=== PATIENT | male | born 1975 | race Two or more races ===

== ENCOUNTER 2018-06-13 14:23 | Emergency (ER) | payer SELFPAY ==
[~2018-06-13] VITALS: Ht 177.8 cm; Wt 75.3 kg
[2018-06-13 14:51] VITALS: Ht 177.8 cm; Wt 75.3 kg
[2018-06-13 16:20] VITALS: BP 137/83
== END 2018-06-13 16:20 | disposition home or self-care (01) ==
LOC: ED 14:23
DX: S30.0XXA Contusion of lower back and pelvis, initial encounter (principal); Y04.8XXA Assault by other bodily force, initial encounter; Y93.89 Activity, other specified; Y92.89 Other specified places as the place of occurrence of the external cause; Y99.8 Other external cause status

== ENCOUNTER 2018-06-15 08:10 | Emergency (ER) | payer MEDICAID ==
[~2018-06-15] VITALS: Ht 177.8 cm; Wt 75.7 kg
[2018-06-15 08:30] VITALS: BP 158/92; Ht 177.8 cm; Wt 75.7 kg
== END 2018-06-15 10:20 | disposition home or self-care (01) ==
LOC: ED 08:10
DX: S22.32XD Fracture of one rib, left side, subsequent encounter for fracture with routine healing (principal); Y04.8XXD Assault by other bodily force, subsequent encounter
CPT/HCPCS: J1885